=== PATIENT | male | born 1960 | race Caucasian/White ===

== ENCOUNTER 2021-11-16 06:28 | Day surgery (SDC) | payer OTHER ==
[2021-11-16] MEDS ORDERED: Sodium Chloride 0.9% 1,000 ML IV SCH (07:00)
[2021-11-16] MEDS ORDERED: Midazolam 1 MG/ML 2 ML SDV ONE (07:29)
[2021-11-16] MEDS ORDERED: fentaNYL 100 MCG/2 ML SDV ONE (07:29)
[2021-11-16] MEDS ORDERED: Propofol 200 MG/20 ML SDV ONE ×2 (07:29→08:12)
[2021-11-16] MEDS ORDERED: Glucagon,Human Recombinant 1 MG Vial ONE (08:32)
== END 2021-11-16 09:41 | disposition home or self-care (01) ==
LOC: JP.SDS 06:28
PROVIDERS: ATTEND Surgery
DX: K62.89 Other specified diseases of anus and rectum (principal)
CPT/HCPCS: 45378; J2250; J2704; J3010; J7030; J1610